=== PATIENT | male | born 1985 | race Caucasian/White ===

== ENCOUNTER 2022-04-12 01:55 | Outpatient (CLI) | payer OTHER, SELFPAY | END 2022-04-12 01:56 | disposition home or self-care (01) | LOC: LBO 01:55 | PROVIDERS: Visit Provider Emergency Medicine ==

== ENCOUNTER 2022-04-15 02:09 | Outpatient (CLI) | payer OTHER, SELFPAY ==
[2022-04-15 10:02] LABS: Abs Immature Grans 0.01 10^3/uL (0.0-0.06); Absolute Basophil Count 0.01 10^3/uL (0.0-0.2); Absolute Eosinophil Count 0.01 10^3/uL (0.0-0.7); Absolute Lymphocyte Count 0.74 10^3/uL (1.2-3.4); Absolute Monocyte Count 0.15 10^3/uL (0.1-0.8); Basophils % 0.4; Eosinophils % 0.4; HCT 31.7 % (40.0-50.0); HGB 10.4 g/dL (13.5-17.5); Immature Grans % 0.4; Lymphocytes % 28.2; MCH 28.7 pg (27.0-33.0); MCHC 32.8 % (32.0-36.0); MCV 88 fL (80-95); MPV 10.6 fL (8.0-11.0); Monocytes % 5.7; Neutrophils % 64.9; RBC 3.62 10^6/uL (4.36-5.78); RDW 14.3 % (11.8-14.1); RDW-SD 45.9 fL; WBC 2.62 10^3/uL (4.4-10.8)
[2022-04-15 10:15] LABS: ALT 30 U/L (16-63); AST 25 U/L (15-37); Albumin 3.6 g/dL (3.4-5.0); Alkaline Phosphatase 66 U/L (46-116); Anion Gap 7.5 mmol/L (3-11); BUN 11 mg/dL (7-18); Bilirubin, Total 0.8 mg/dL (0.2-1.0); CO2 26.5 mmol/L (21.0-32.0); CREATININE 0.8 mg/dL (0.70-1.30); Calcium 8.7 mg/dL (8.5-10.1); Chloride 107 mmol/L (98-107); Glucose 91 mg/dL (74-106); Potassium 3.6 mmol/L (3.5-5.1); Sodium 141 mmol/L (136-145); Total Protein 8.2 g/dL (6.4-8.2)
[2022-04-15 10:16] LABS: Platelet Count 65 10^3/uL (130-400)
[2022-04-18 10:09] LABS: Hepatitis C Ab w Rflx HCV PCR Reactive (Negative)
[2022-04-18 14:58] LABS: HCV RNA Detection Quantitative 187000 IU/mL (Undetected); HCV RNA Qualitative Detected (Undetected)
== END 2022-04-15 02:10 | disposition home or self-care (01) ==
PROVIDERS: Visit Provider Emergency Medicine
DX: Z13.89 Encounter for screening for other disorder (principal); Z11.8 Encounter for screening for other infectious and parasitic diseases
CPT/HCPCS: 36415; 80053; 86803; 87522; 85025

== ENCOUNTER 2022-08-29 04:21 | Outpatient (CLI) | payer OTHER, SELFPAY ==
[2022-08-29 12:43] LABS: Absolute Basophil Count 0.03 10^3/uL (0.0-0.2); Absolute Eosinophil Count 0.05 10^3/uL (0.0-0.7); Absolute Lymphocyte Count 1.19 10^3/uL (1.2-3.4); Absolute Monocyte Count 0.24 10^3/uL (0.1-0.8); Basophils % 0.9; Eosinophils % 1.4; HCT 36.7 % (40.0-50.0); HGB 11.7 g/dL (13.5-17.5); Lymphocytes % 33.9; MCH 28.8 pg (27.0-33.0); MCHC 31.9 % (32.0-36.0); MCV 90 fL (80-95); MPV 10.9 fL (8.0-11.0); Monocytes % 6.8; RBC 4.06 10^6/uL (4.36-5.78); RDW 13.7 % (11.8-14.1); RDW-SD 45.4 fL; WBC 3.51 10^3/uL (4.4-10.8)
[2022-08-29 12:57] LABS: Platelet Count 96 10^3/uL (130-400)
[2022-08-29 13:00] LABS: ALT 12 U/L (16-63); AST 16 U/L (15-37); Albumin 3.8 g/dL (3.4-5.0); Alkaline Phosphatase 72 U/L (46-116); Anion Gap 8.1 mmol/L (3-11); BUN 13 mg/dL (7-18); Bilirubin, Total 0.4 mg/dL (0.2-1.0); CO2 28.9 mmol/L (21.0-32.0); CREATININE 0.8 mg/dL (0.70-1.30); Calcium 9.2 mg/dL (8.5-10.1); Chloride 104 mmol/L (98-107); Estimated GFR 116.17 (mL/min/1.73m2); Glucose 90 mg/dL (74-106); Potassium 4.4 mmol/L (3.5-5.1); Sodium 141 mmol/L (136-145)
[2022-08-30 10:28] LABS: Hepatitis C Ab w Rflx HCV PCR Reactive (Negative)
[2022-08-31 12:41] LABS: HCV RNA Detection Quantitative 21 IU/mL (Undetected); HCV RNA Qualitative Detected (Undetected)
== END 2022-08-29 04:22 | disposition home or self-care (01) ==
LOC: LBO 04:21
PROVIDERS: PCP Family Medicine; Visit Provider Emergency Medicine
DX: B18.2 Chronic viral hepatitis C (principal); F11.20 Opioid dependence, uncomplicated; E66.9 Obesity, unspecified; I87.2 Venous insufficiency (chronic) (peripheral)
CPT/HCPCS: 36415; 80053; 86803; 87522; 85025

== ENCOUNTER 2022-11-17 12:22 | Inpatient (IN) | payer MEDICAID, SELFPAY ==
[2022-11-17] VITALS (12 sets, daily range): BP systolic 118–143; BP diastolic 58–82; PULSE 70–90; RESP 16–20; TEMP 36.8–38.2; O2SAT 94–98
--- NOTE | 2022-11-17 13:00 | DI.CT_ITS ---
Exam(s) CT LOWER EXTREMITY RT W EXAM: CT LOWER EXTREMITY RT W CLINICAL HISTORY: cellulitis, ?abscess, swelling. TECHNIQUE: Imaging Protocol: Axial computed tomography images with coronal and sagittal reformatted images were created and reviewed. CONTRAST MATERIAL: Intravenous: Omnipaque 350. Contrast Volume: 100 ML COMPARISON: No exams were available for comparison FINDINGS: Bones: The osseous structures and articular surfaces are intact. Bony alignment is satisfactory. N o CT findings to suggest osteomyelitis. Degenerative changes are seen in the knee. No lytic or scle rotic lesions are identified. Soft Tissues: There is marked edema and skin thickening throughout the lower extremity. No focal flu id collection is seen to suggest an abscess. There is a skin defect in the anterior leg. This may r epresent an ulceration or laceration. Enhancement: No abnormal enhancement is identified. IMPRESSION: 1. Marked cellulitis in the lower extremity. No evidence of an abscess. 2. Ulceration or laceration involving the anterior lower leg. 3. Findings were discussed with Dr. Gomez at 3:04 p.m. on 11/17/2022. RADIATION DOSE DELIVERED: 567.65mGy.cm Total DLP 567.65mGy.cm Total DLP DATA REPOSITORY: All CT scans at this facility are submitted to the National Radiology Data Registry (NRDR) Dose Index Registry (DIR) with the [employer] (A[employer]). RADIATION OPTIMIZATION: All CT scans at this facility use at least one of these dose optimization te chniques: automated exposure control; mA and/or kV adjustment per patient size (includes targeted exa ms where dose is matched to clinical indication); or iterative reconstruction.
[2022-11-17 13:33] LABS: Abs Immature Grans 0.04 10^3/uL (0.0-0.06); Absolute Basophil Count 0.02 10^3/uL (0.0-0.2); Absolute Eosinophil Count 0.02 10^3/uL (0.0-0.7); Absolute Lymphocyte Count 0.65 10^3/uL (1.2-3.4); Absolute Monocyte Count 0.34 10^3/uL (0.1-0.8); Absolute Neutrophil Count 5.66 10^3/uL (1.2-6.7); Basophils % 0.3; Eosinophils % 0.3; HCT 31.3 % (40.0-50.0); HGB 9.7 g/dL (13.5-17.5); Immature Grans % 0.6; Lymphocytes % 9.7; MCV 91 fL (80-95); MPV 11.2 fL (8.0-11.0); Monocytes % 5.1; Platelet Count 155 10^3/uL (130-400); RBC 3.46 10^6/uL (4.36-5.78); RDW 13.6 % (11.8-14.1); RDW-SD 45.1 fL; WBC 6.73 10^3/uL (4.4-10.8)
[2022-11-17 13:34] LABS: ESR 53 mm/hr (0-15)
[2022-11-17] MEDS: VANCOMYCIN/WATER (PEG) 2 GM/400 ML BAG IV (13:38)
[2022-11-17 13:43] LABS: C-Reactive Protein 18.16 mg/dL (0.0-0.3)
[2022-11-17 13:47] LABS: ALT 24 U/L (16-63); AST 29 U/L (15-37); Albumin 2.6 g/dL (3.4-5.0); Alkaline Phosphatase 76 U/L (46-116); Anion Gap 4.5 mmol/L (3-11); BUN 10 mg/dL (7-18); Bilirubin, Total 0.6 mg/dL (0.2-1.0); CO2 31.5 mmol/L (21.0-32.0); CREATININE 0.9 mg/dL (0.70-1.30); Calcium 8.6 mg/dL (8.5-10.1); Chloride 104 mmol/L (98-107); Estimated GFR 112.11 (mL/min/1.73m2); Glucose 96 mg/dL (74-106); Potassium 3.8 mmol/L (3.5-5.1); Sodium 140 mmol/L (136-145); Total Protein 7.9 g/dL (6.4-8.2)
--- NOTE | 2022-11-17 14:21 | W.SURGCON ---
Date of service: 11/17/22 Time of Service: 14:21 Assessment and Plan Assessment and plan (1) Left leg cellulitis: Status: Acute Assessment and plan: This seems most consistent with a severe cellulitis mostly of the left lower extremity, compounding chronic wounds and what appears to be venous stasis or perhaps chronic lymphedema. I would start with broad-spectrum antibiotics covering typical skin fortino. To keep both legs elevated while in bed. I would continue Medihoney on the open wound, covered by Xeroform gauze, and compressive dressings from the toes to the knees. History of Present Illness History of Present Illness Chief Complaint: Right leg wounds Narrative: Chadd is a 37-year-old male with bilateral lower extremity edema. He has chronic wounds on both lower extremities. He notes that the left leg has become increasingly swollen, red, and painful over the past 4 to 5 days. Today, there was spontaneous drainage of bland smelling serosanguineous discharge from the posterior aspect of the left calf. Review of Systems Constitutional Constitutional: Denies body ache(s), Denies fatigue, Denies fever(s) and Denies night sweats Eyes Eyes: Reports system reviewed and no additional complaints, except as documented ENT Ears, Nose, Mouth, and Throat: Reports system reviewed and no additional complaints, except as documented and Denies abnormal hearing Cardiovascular Cardiovascular: Reports leg ulcers and Reports leg edema Respiratory Respiratory: Denies chest congestion and Denies cough Gastrointestinal Gastrointestinal: Denies abdominal pain, Denies diarrhea, Denies nausea and Denies vomiting Genitourinary Genitourinary: Reports system reviewed and no additional complaints, except as documented Musculoskeletal Musculoskeletal: Denies arthralgias, Denies joint swelling, Reports muscle cramps and Denies tingling Neurologic Neurologic: Denies abnormal hearing, Denies abnormal speech and Denies tingling Psychiatric Psychiatric: Reports system reviewed and no additional complaints, except as documented Endocrine Endocrine: Denies fatigue, Denies flushing and Denies polyuria Hematologic/Lymphatic Hematologic/Lymphatic: Denies easy bleeding and Denies easy bruising PFSH All Active Problems (Updated 11/17/22 @ 14:57 by Reggie Maldonado MD) Left leg cellulitis (Acute) Social History Smoking risk assessment performed?: No Exam Const General: cooperative Nutritional Appearance: obese Orientation: alert, awake and oriented x3 HENMT Head: normal to inspection Eyes General: appearance normal, both eyes and all related structures Neck Neck: normal visual inspection, full ROM, supple and nontender Chest Chest: normal inspection of the chest Resp Auscultation: clear to auscultation bilaterally Cardio Jugular venous pressure: no JVD Rate: regular rate Rhythm: regular rhythm Skin Wounds: wounds noted (Multiple superficial chronic skin wounds on both legs) There is a large surgically debrided wound on the anterior lateral aspect of the left lower leg. It is clean. Mildly tender diffuse erythema along the entire left lower extremity from the alvarez to the ankle there is serosanguineous discharge from punctate wounds on the backside of the left Extrem Right lower extremity: edema and lower leg Left lower extremity: edema and lower leg Other: He has palpable pulses in the left dorsalis pedis and posterior tibial distributions Results Last Vital Signs Temp 98.2 F 11/17/22 12:25 Pulse 90 11/17/22 12:25 Resp 20 11/17/22 12:25 BP 142/77 H 11/17/22 12:25 Pulse Ox 98 11/17/22 12:25 Labs 11/17/22 13:20 11/17/22 13:20 Labs: Laboratory Results - last 24 hr 11/17/22 11/17/22 11/17/22 13:20 13:20 13:20 WBC 6.73 RBC 3.46 L Hgb 9.7 L Hct 31.3 L MCV 91 MCH 28.0 MCHC 31.0 L RDW 13.6 Plt Count 155 MPV 11.2 H Immature Gran % 0.6 Neutrophils % 84.0 Lymphocytes % 9.7 Monocytes % 5.1 Eosinophils % 0.3 Basophils % 0.3 Nucleated RBC % 0.0 Absolute Neutrophils 5.66 Absolute Lymphocytes 0.65 L Absolute Monocytes 0.34 Absolute Eosinophils 0.02 Absolute Basophils 0.02 ESR Sodium 140 Potassium 3.8 Chloride 104 Carbon Dioxide 31.5 Anion Gap 4.5 BUN 10 Creatinine 0.9 Est GFR (CKD-EPI 2020) 112.11 Glucose 96 Calcium 8.6 Total Bilirubin 0.6 AST 29 ALT 24 Alkaline Phosphatase 76 C-Reactive Protein 18.16 H Total Protein 7.9 Albumin 2.6 L 11/17/22 13:20 WBC RBC Hgb Hct MCV MCH MCHC RDW Plt Count MPV Immature Gran % Neutrophils % Lymphocytes % Monocytes % Eosinophils % Basophils % Nucleated RBC % Absolute Neutrophils Absolute Lymphocytes Absolute Monocytes Absolute Eosinophils Absolute Basophils ESR 53 H Sodium Potassium Chloride Carbon Dioxide Anion Gap BUN Creatinine Est GFR (CKD-EPI 2020) Glucose Calcium Total Bilirubin AST ALT Alkaline Phosphatase C-Reactive Protein Total Protein Albumin
[2022-11-17] MEDS: Omnipaque 350 MG/ML 500 ML BTL-Imaging package IJ (14:59)
[2022-11-17] MEDS: Normal Saline - Diluent 50 ML VIAL IJ (15:00)
--- NOTE | 2022-11-17 15:29 | W.ED.GENAD ---
Discharge Plan Disposition Patient Disposition: Admit to [facility] Discharge Details Chief Complaint: Cellulitis Clinical Impression: Left leg cellulitis, Lymphedema Primary Care Provider: Flavio Majano ED Provider: Maksim Gomez Home Meds and New Rx's Prescriptions: No Action acetaminophen 325 mg Tablet 650 mg PO TID clindamycin HCl 300 mg Capsule 300 mg PO TID meloxicam 7.5 mg tablet 7.5 mg PO DAILY buprenorphine HCl [Subutex] 2 mg Tablet, Sublingual 4 mg SUBLINGUAL DAILY buprenorphine HCl [Subutex] 8 mg Tablet, Sublingual 8 mg SUBLINGUAL DAILY Medical Decision Making 37-year-old male with chronic lymphedema bilateral lower extremities, here with acute cellulitis left lower extremity over the past 5 days refractory to clindamycin, draining heavily. Concern for deep space abscess. Plan to initiate treatment for MRSA with vancomycin IV. I called and spoke with on-call general surgeon, Dr. Maldonado, discussed ED presentation and course, he evaluated the patient and did not feel there was any emergent surgical treatment indicated. CT of the left lower leg was interpreted by radiology: No abscess or osteomyelitis. I reviewed the patient's labs. Anemia of unknown etiology noted. I called and spoke with Dr. Mc, on-call hospitalist, discussed ED presentation course, he will admit the patient for continued IV antibiotics. Care transitioned at time of admission. Lab Data Lab results reviewed: Yes I reviewed the patient's lab results. Labs: 11/17/22 15:04 Nose MRSA Screen - Pending Laboratory Tests Range/Units 11/17/22 11/17/22 11/17/22 13:20 13:20 13:20 WBC (4.4-10.8) 10^3/uL 6.73 RBC (4.36-5.78) 10^6/uL 3.46 L Hgb (13.5-17.5) g/dL 9.7 L Hct (40.0-50.0) % 31.3 L MCV (80-95) fL 91 MCH (27.0-33.0) pg 28.0 MCHC (32.0-36.0) % 31.0 L RDW (11.8-14.1) % 13.6 Plt Count (130-400) 10^3/uL 155 MPV (8.0-11.0) fL 11.2 H Immature Gran % 0.6 Neutrophils % 84.0 Lymphocytes % 9.7 Monocytes % 5.1 Eosinophils % 0.3 Basophils % 0.3 Nucleated RBC % (0.0-0.3) % 0.0 Absolute Neutrophils (1.2-6.7) 10^3/uL 5.66 Absolute Lymphocytes (1.2-3.4) 10^3/uL 0.65 L Absolute Monocytes (0.1-0.8) 10^3/uL 0.34 Absolute Eosinophils (0.0-0.7) 10^3/uL 0.02 Absolute Basophils (0.0-0.2) 10^3/uL 0.02 ESR (0-15) mm/hr Sodium (136-145) mmol/L 140 Potassium (3.5-5.1) mmol/L 3.8 Chloride (98-107) mmol/L 104 Carbon Dioxide (21.0-32.0) mmol/L 31.5 Anion Gap (3-11) mmol/L 4.5 BUN (7-18) mg/dL 10 Creatinine (0.70-1.30) mg/dL 0.9 Est GFR (CKD-EPI 2020) (mL/min/1.73m2) 112.11 Glucose (74-106) mg/dL 96 Calcium (8.5-10.1) mg/dL 8.6 Total Bilirubin (0.2-1.0) mg/dL 0.6 AST (15-37) U/L 29 ALT (16-63) U/L 24 Alkaline Phosphatase (46-116) U/L 76 C-Reactive Protein (0.0-0.3) mg/dL 18.16 H Total Protein (6.4-8.2) g/dL 7.9 Albumin (3.4-5.0) g/dL 2.6 L Range/Units 11/17/22 13:20 WBC (4.4-10.8) 10^3/uL RBC (4.36-5.78) 10^6/uL Hgb (13.5-17.5) g/dL Hct (40.0-50.0) % MCV (80-95) fL MCH (27.0-33.0) pg MCHC (32.0-36.0) % RDW (11.8-14.1) % Plt Count (130-400) 10^3/uL MPV (8.0-11.0) fL Immature Gran % Neutrophils % Lymphocytes % Monocytes % Eosinophils % Basophils % Nucleated RBC % (0.0-0.3) % Absolute Neutrophils (1.2-6.7) 10^3/uL Absolute Lymphocytes (1.2-3.4) 10^3/uL Absolute Monocytes (0.1-0.8) 10^3/uL Absolute Eosinophils (0.0-0.7) 10^3/uL Absolute Basophils (0.0-0.2) 10^3/uL ESR (0-15) mm/hr 53 H Sodium (136-145) mmol/L Potassium (3.5-5.1) mmol/L Chloride (98-107) mmol/L Carbon Dioxide (21.0-32.0) mmol/L Anion Gap (3-11) mmol/L BUN (7-18) mg/dL Creatinine (0.70-1.30) mg/dL Est GFR (CKD-EPI 2020) (mL/min/1.73m2) Glucose (74-106) mg/dL Calcium (8.5-10.1) mg/dL Total Bilirubin (0.2-1.0) mg/dL AST (15-37) U/L ALT (16-63) U/L Alkaline Phosphatase (46-116) U/L C-Reactive Protein (0.0-0.3) mg/dL Total Protein (6.4-8.2) g/dL Albumin (3.4-5.0) g/dL HPI General Date/Time Provider Initiated Documentation: 11/17/22 12:50. Limitations to Documentation: no limitations. Information obtained by: patient. HPI Narrative: 37-year-old male with history of chronic lymphedema bilateral lower extremities, here with concern for infection left lower extremity. Patient notes over the past 5 days he has had increased swelling, redness, and drainage from posterior left lower leg. He was started on clindamycin which she has been taking over the past 5 days without improvement. Drainage is significant. He has no associated fever. Related Data Home Medications Medication Instructions Recorded Confirmed acetaminophen 325 mg tablet 650 mg PO TID 11/17/22 11/17/22 buprenorphine HCl 2 mg sublingual 4 mg sublingual DAILY 11/17/22 11/17/22 tablet buprenorphine HCl 8 mg sublingual 8 mg sublingual DAILY 11/17/22 11/17/22 tablet clindamycin HCl 300 mg capsule 300 mg PO TID 11/17/22 11/17/22 meloxicam 7.5 mg tablet 7.5 mg PO DAILY 11/17/22 11/17/22 Allergies Allergy/AdvReac Type Severity Reaction Status Date / Time No Known Allergies Allergy Unverified 11/17/22 12:42 General Stated Complaint: Cellulitis MARCELLE: 3 Review of Systems All systems reviewed & are unremarkable except as noted in HPI and below Constitutional Constitutional: Denies fever(s) Integumentary/Breasts Skin/Breast: Reports as per HPI PFSH All Active Problems (Updated 11/17/22 @ 15:38 by Maksim Gomez MD) Lymphedema (Acute) Left leg cellulitis (Acute) Social History Smoking risk assessment performed?: No Exam Const General: cooperative and no acute distress HENMT Head: atraumatic Mouth: moist mucous membranes Cardio Rate: regular rate and not tachycardic Rhythm: regular rhythm Skin Rashes: rashes noted (Increased redness posterior right lower leg) Extrem Right lower extremity: lower leg Details: erythema, tenderness and other (Edematous, yellow drainage from wounds posterior lower leg, large deep ulceration anterior) Course Vital Signs Vital signs: Vital Signs Temperature 36.8 C 11/17/22 12:25 Pulse 90 11/17/22 12:25 Respiratory Rate 20 11/17/22 12:25 Blood Pressure 142/77 H 11/17/22 12:25 Pulse Oximetry 98 11/17/22 12:25 Temperature 36.8 C 11/17/22 12:25 Temperature Source Oral 11/17/22 12:25 Pulse 90 11/17/22 12:25 Respiratory Rate 20 11/17/22 12:25 Respiratory Effort Normal 11/17/22 14:20 Blood Pressure 142/77 H 11/17/22 12:25 Blood Pressure Position Sitting 11/17/22 12:25 Pulse Oximetry 98 11/17/22 12:25 Oxygen Delivery Method Room Air 11/17/22 12:25 Oxygen Flow Rate 0 11/17/22 12:25 Lab/Test Results Lab/Test Results: 11/17/22 15:04 Nose MRSA Screen - Pending Laboratory Tests Range/Units 11/17/22 11/17/22 11/17/22 13:20 13:20 13:20 WBC (4.4-10.8) 10^3/uL 6.73 RBC (4.36-5.78) 10^6/uL 3.46 L Hgb (13.5-17.5) g/dL 9.7 L Hct (40.0-50.0) % 31.3 L MCV (80-95) fL 91 MCH (27.0-33.0) pg 28.0 MCHC (32.0-36.0) % 31.0 L RDW (11.8-14.1) % 13.6 Plt Count (130-400) 10^3/uL 155 MPV (8.0-11.0) fL 11.2 H Immature Gran % 0.6 Neutrophils % 84.0 Lymphocytes % 9.7 Monocytes % 5.1 Eosinophils % 0.3 Basophils % 0.3 Nucleated RBC % (0.0-0.3) % 0.0 Absolute Neutrophils (1.2-6.7) 10^3/uL 5.66 Absolute Lymphocytes (1.2-3.4) 10^3/uL 0.65 L Absolute Monocytes (0.1-0.8) 10^3/uL 0.34 Absolute Eosinophils (0.0-0.7) 10^3/uL 0.02 Absolute Basophils (0.0-0.2) 10^3/uL 0.02 ESR (0-15) mm/hr Sodium (136-145) mmol/L 140 Potassium (3.5-5.1) mmol/L 3.8 Chloride (98-107) mmol/L 104 Carbon Dioxide (21.0-32.0) mmol/L 31.5 Anion Gap (3-11) mmol/L 4.5 BUN (7-18) mg/dL 10 Creatinine (0.70-1.30) mg/dL 0.9 Est GFR (CKD-EPI 2020) (mL/min/1.73m2) 112.11 Glucose (74-106) mg/dL 96 Calcium (8.5-10.1) mg/dL 8.6 Total Bilirubin (0.2-1.0) mg/dL 0.6 AST (15-37) U/L 29 ALT (16-63) U/L 24 Alkaline Phosphatase (46-116) U/L 76 C-Reactive Protein (0.0-0.3) mg/dL 18.16 H Total Protein (6.4-8.2) g/dL 7.9 Albumin (3.4-5.0) g/dL 2.6 L Range/Units 11/17/22 13:20 WBC (4.4-10.8) 10^3/uL RBC (4.36-5.78) 10^6/uL Hgb (13.5-17.5) g/dL Hct (40.0-50.0) % MCV (80-95) fL MCH (27.0-33.0) pg MCHC (32.0-36.0) % RDW (11.8-14.1) % Plt Count (130-400) 10^3/uL MPV (8.0-11.0) fL Immature Gran % Neutrophils % Lymphocytes % Monocytes % Eosinophils % Basophils % Nucleated RBC % (0.0-0.3) % Absolute Neutrophils (1.2-6.7) 10^3/uL Absolute Lymphocytes (1.2-3.4) 10^3/uL Absolute Monocytes (0.1-0.8) 10^3/uL Absolute Eosinophils (0.0-0.7) 10^3/uL Absolute Basophils (0.0-0.2) 10^3/uL ESR (0-15) mm/hr 53 H Sodium (136-145) mmol/L Potassium (3.5-5.1) mmol/L Chloride (98-107) mmol/L Carbon Dioxide (21.0-32.0) mmol/L Anion Gap (3-11) mmol/L BUN (7-18) mg/dL Creatinine (0.70-1.30) mg/dL Est GFR (CKD-EPI 2020) (mL/min/1.73m2) Glucose (74-106) mg/dL Calcium (8.5-10.1) mg/dL Total Bilirubin (0.2-1.0) mg/dL AST (15-37) U/L ALT (16-63) U/L Alkaline Phosphatase (46-116) U/L C-Reactive Protein (0.0-0.3) mg/dL Total Protein (6.4-8.2) g/dL Albumin (3.4-5.0) g/dL
[2022-11-17 15:37] LABS: Source Nasal/Nares
[2022-11-17 15:54] LABS: Lab Add On Test DONE
[2022-11-17 16:08] LABS: COVID-19 PCR Negative (Negative)
[2022-11-17 16:11] LABS: Iron 12 ug/dL (65-175); Total Iron Binding Capacity 191 ug/dL (250-450); Transferrin Sat 6 % (20-55)
--- NOTE | 2022-11-17 17:20 | HPE_ITS ---
Date of service: 11/17/22 Time of Service: 17:20 Assessment and Plan Assessment and plan (1) Lymphedema: Status: Acute Assessment and plan: Chronic with wounds as described below. He is incarcerated so logistics of lymphedema care could be problematic but recommend evaluation from lymphedema specialist. (2) Left leg cellulitis: Status: Acute Assessment and plan: Initiated vancomycin in the ED. MRSA screen pending. Add Zosyn; possible pseudomonas? (3) Venous stasis ulcer: Status: Acute Assessment and plan: Wound care recommendations per gen. surgery. Lymphedema with venous stasis as the etiology of his multiple shallow ulcers and the larger, previously debrided ulcer on the LLE. History of Present Illness History of Present Illness Chief Complaint: Cellulitis Narrative: This is a 37 yo male with a PMH of lymphedema, substance abuse, venous stasis leg ulcerations. He is currently incarcerated. He presented to the ED for ongoing increased redness, swelling and drainage from the posterior left LE. He was prescribed clindamycin 5 days prior to presentation but had not noted any improvement. No current fever but stated that 2-3 days ago he did have a temp of 103F. No N/V/diarrhea. In the ED VSS. WBC count normal. CRP elevated at 18.16. ESR elevated at 53. CT of the LLE showed no abscess or osteomyelitis. Gen Surg, Dr Maldonado evaluated and gave wound care recommendations. Vancomycin administered in the ED. Review of Systems All systems reviewed & are unremarkable except as noted in HPI and below PFSH All Active Problems (Updated 11/18/22 @ 07:59 by Josep Mc MD) Venous stasis ulcer (Acute) Lymphedema (Acute) Left leg cellulitis (Acute) Social History Smoking/Tobacco Use Status: Former Tobacco Use Smoking risk assessment performed?: Yes Meds Allergies and Home Medications Allergies Allergy/AdvReac Type Severity Reaction Status Date / Time No Known Allergies Allergy Unverified 11/17/22 12:42 Home Medications Medication Instructions Recorded Confirmed Type acetaminophen 325 mg tablet 650 mg PO TID 11/17/22 11/17/22 History buprenorphine HCl 2 mg sublingual 4 mg sublingual DAILY 11/17/22 11/17/22 History tablet buprenorphine HCl 8 mg sublingual 8 mg sublingual DAILY 11/17/22 11/17/22 History tablet clindamycin HCl 300 mg capsule 300 mg PO TID 11/17/22 11/17/22 History meloxicam 7.5 mg tablet 7.5 mg PO DAILY 11/17/22 11/17/22 History Exam Narrative Exam Narrative: Obese male lying supine. Pleasant, conversant and gives good history. Const General: cooperative and no acute distress Nutritional Appearance: obese Orientation: alert and oriented x3 Neck Neck: full ROM Resp Effort & Inspection: normal respiratory effort and able to speak in complete sentences Auscultation: clear to auscultation bilaterally Cardio Rate: regular rate Rhythm: regular rhythm Heart Sounds: S1 normal and S2 normal GI Inspection: non-distended and obesity Palpation: soft and nontender Skin Lesions: other (Multiple superficial skin wounds of BLE's below the knee s/chronic appearing) Full body images: 1. Large wound that has been surgically debrided; contains slough. 2. Diffuse erythema (anterior and posterior) with serosanguineous drainage from scattered punctate wounds posteriorly. Extrem General: edema Laterality: bilateral Psych Mental Status: mental status grossly normal Speech and Movement: speech and movement normal Affect: normal affect Results Labs 11/17/22 13:20 11/17/22 13:20 Labs: Laboratory Results - last 24 hr 11/17/22 11/17/22 11/17/22 13:20 13:20 13:20 WBC 6.73 RBC 3.46 L Hgb 9.7 L Hct 31.3 L MCV 91 MCH 28.0 MCHC 31.0 L RDW 13.6 Plt Count 155 MPV 11.2 H Immature Gran % 0.6 Neutrophils % 84.0 Lymphocytes % 9.7 Monocytes % 5.1 Eosinophils % 0.3 Basophils % 0.3 Nucleated RBC % 0.0 Absolute Neutrophils 5.66 Absolute Lymphocytes 0.65 L Absolute Monocytes 0.34 Absolute Eosinophils 0.02 Absolute Basophils 0.02 ESR Sodium 140 Potassium 3.8 Chloride 104 Carbon Dioxide 31.5 Anion Gap 4.5 BUN 10 Creatinine 0.9 Est GFR (CKD-EPI 2020) 112.11 Glucose 96 Calcium 8.6 Iron TIBC Transferrin % Sat Total Bilirubin 0.6 AST 29 ALT 24 Alkaline Phosphatase 76 C-Reactive Protein 18.16 H Total Protein 7.9 Albumin 2.6 L COVID-19 Source SARS-CoV-2 (PCR) Add-On Test Request 11/17/22 11/17/22 11/17/22 13:20 13:20 15:33 WBC RBC Hgb Hct MCV MCH MCHC RDW Plt Count MPV Immature Gran % Neutrophils % Lymphocytes % Monocytes % Eosinophils % Basophils % Nucleated RBC % Absolute Neutrophils Absolute Lymphocytes Absolute Monocytes Absolute Eosinophils Absolute Basophils ESR 53 H Sodium Potassium Chloride Carbon Dioxide Anion Gap BUN Creatinine Est GFR (CKD-EPI 2020) Glucose Calcium Iron 12 L TIBC 191 L Transferrin % Sat 6 L Total Bilirubin AST ALT Alkaline Phosphatase C-Reactive Protein Total Protein Albumin COVID-19 Source Nasal/Nares SARS-CoV-2 (PCR) Negative Add-On Test Request 11/17/22 Unknown WBC RBC Hgb Hct MCV MCH MCHC RDW Plt Count MPV Immature Gran % Neutrophils % Lymphocytes % Monocytes % Eosinophils % Basophils % Nucleated RBC % Absolute Neutrophils Absolute Lymphocytes Absolute Monocytes Absolute Eosinophils Absolute Basophils ESR Sodium Potassium Chloride Carbon Dioxide Anion Gap BUN Creatinine Est GFR (CKD-EPI 2020) Glucose Calcium Iron TIBC Transferrin % Sat Total Bilirubin AST ALT Alkaline Phosphatase C-Reactive Protein Total Protein Albumin COVID-19 Source SARS-CoV-2 (PCR) Add-On Test Request DONE Last Vital Signs Temp 37.8 C H 11/17/22 16:05 Pulse 79 11/17/22 16:05 Resp 18 11/17/22 16:05 BP 143/82 H 11/17/22 16:05 Pulse Ox 98 11/17/22 16:05 Time Spent Time spent with Patient: <40 minutes Time was spent: preparing to see the patient(eg.review tests), ordering me dications,tests, procedures, indepentently interpreting results and counseling the patient
[2022-11-17 17:52] LABS: Lab Add On Test DONE
[2022-11-17 18:01] LABS: Magnesium 1.9 mg/dL (1.8-2.4)
--- NOTE | 2022-11-17 21:22 | NUR.NOTE ---
Pt came up to floor with IV Vancomycin infusing to ARANZA. Pt c/o arm feeling funny. This nurse looked at pt arm and didn't observe any redness. Pt is fairly large and arms are large as well. No warmth felt at site. IV infusion stopped, IV flushed w/no blood return noted. IV was taken out by this nurse. Pt voiced no other complaints about arm. Pt was given ice pack for arm and asked to report any burning or stinging to arm. Charge nurse made aware.
[2022-11-17] MEDS: Heparin 5,000 UNITS/ML VIAL 5000 UNITS SC (22:51)
[2022-11-17] MEDS: VANCOMYCIN/WATER (PEG) 1.5 GM/300 ML BAG IVPB (22:52)
[2022-11-18] MEDS: Heparin 5,000 UNITS/ML VIAL 5000 UNITS SC ×3 (05:57→21:39)
[2022-11-18] MEDS: VANCOMYCIN/WATER (PEG) 1.5 GM/300 ML BAG IVPB ×2 (05:57→16:04)
[2022-11-18 07:00] LABS: ESR 77 mm/hr (0-15)
[2022-11-18 07:23] LABS: C-Reactive Protein 13.07 mg/dL (0.0-0.3)
[2022-11-18 07:29] VITALS: BP 126/63; PULSE 72; RESP 17; TEMP 37.5; O2SAT 95
[2022-11-18] MEDS: Buprenorphine 2 MG SUBLINGUAL TABLET 4 MG SL (08:38)
[2022-11-18] MEDS: MELOXICAM 7.5 MG TAB PO (08:38)
--- NOTE | 2022-11-18 10:57 | INITIAL_ITS ---
- If Service Date Differs Date of service: 11/18/22 Time of Service: 10:57 Care Management Initial Assess REASON FOR HOSPITALIZATION:: Cellulitis PAST MEDICAL HISTORY/PAST SURGICAL HISTORY:: Venous stasis ulcer (Acute). Lymphedema (Acute). Left leg cellulitis (Acute). PMH of lymphedema, substance use, venous stasis leg ulcerations. He is currently incarcerated. He presented to the ED for ongoing increased redness, swelling and drainage from the post erior left LE. He was prescribed clindamycin 5 days prior to presentation but had not noted any improvement. PREVIOUS FUNCTIONAL STATUS/SOCIAL/FAMILY SUPPORTS:: Incarcerated at [facility]. CURRENT FUNCTIONAL STATUS:: Ed is lying in bed, guards at bedside. ADVANCE DIRECTIVES:: None on file. Has patient been provided with info about the portal/API?: No Did the patient sign up for the portal?: No CODE STATUS:: Full Code INSURANCE COVERAGE / FINANCIAL ISSUES:: Medicaid. [facility] CURRENT HOME/COMMUNITY SERVICES/EQUIPMENT:: Incarcerated at [facility]; the facility manages service and care needs. PRIMARY CARE PHYSICIAN:: Flavio Majano POTENTIAL DISCHARGE NEEDS:: Coordinated return to [facility]. PATIENT/FAMILY EDUCATION NEEDS:: Review discharge instructions, discuss Ask Me Three. ANTICIPATED BARRIERS TO DISCHARGE:: None identified. TRANSPORTATION:: Via facility's secure transport. PLAN:: Chadd continues work up for infection; awaiting culture results and sen sitivities for determination of antibiotic course, frequency and duration. Nina San: [facility] reports she is available seven days a week to support discharge planning at P#[phone]. She reported if Ed requires IV ABX, corrections can support this with at least 24 hours notice (pharmacy out of state) and PICC line placement. [facility] continues to follow.
--- NOTE | 2022-11-18 14:01 | CHAPLAIN ---
Chadd was in bed when I visited. He is currently incarcerated, so he had two corrections officers with him. I explained my role to Chadd and offered support.
[2022-11-18] MEDS: PIPERACILLIN/TAZO 4.5 GM in Normal Saline 100 ML IVPB ×2 (14:39→19:17)
[2022-11-18] MEDS: Normal Saline 500 ML 30 ML IV (14:41)
[2022-11-18] MEDS: Normal Saline Flush 10 ML SYR IVP ×2 (14:42→16:05)
[2022-11-18 15:08] VITALS: BP 137/65; PULSE 77; RESP 17; TEMP 37.3; O2SAT 95
[2022-11-18] MEDS: Linezolid 600 MG TAB PO (15:13)
--- NOTE | 2022-11-18 16:38 | PGE_ITS ---
Date of Service Date of service: 11/18/22 Time of Service: 16:38 Assessment and Plan Assessment and plan (1) Lymphedema: Status: Acute Assessment and plan: Chronic with wounds as described below. He is incarcerated so logistics of lymphedema care could be problematic but brooks mmend evaluation from lymphedema specialist. (2) Left leg cellulitis: Status: Acute Assessment and plan: Initiated vancomycin in the ED. Dose delay today after losing IV access before a midline could be placed. Now has midline. Zosyn initiated. MRSA screen negative. He did receive a dose of vancomyin prior to the nasal swab for MRSA screening. HIs cellulitis did improve clinically after vancomycin initiated so a gram + organism, MSSA or strep, likely causative agent. May reconsider continuing zosyn. Consider d/c on doxycycline. (3) Venous stasis ulcer: Status: Acute Assessment and plan: Wound care recommendations per gen. surgery. Lymphedema with venous stasis as the etiology of his multiple shallow ulcers and the larger, previously debrided ulcer on the LLE. Subjective Subjective Patient reports: no new complaints, feels better and afebrile; denies nausea or vomiting Interval history since last seen: He notes decreased redness of LLE. Exam Narrative Exam Narrative: Obese male lying supine. Pleasant, conversant and gives good history. Const General: cooperative and no acute distress Nutritional Appearance: obese Orientation: alert and oriented x3 Neck Neck: full ROM Resp Effort & Inspection: normal respiratory effort and able to speak in complete sentences Auscultation: clear to auscultation bilaterally Cardio Rate: regular rate Rhythm: regular rhythm Heart Sounds: S1 normal and S2 normal GI Inspection: non-distended and obesity Palpation: soft and nontender Skin Lesions: other (Multiple superficial skin wounds of BLE's below the knees/chronic appearing) Wounds: wounds noted (Left lateral LE below the knee; bandage in place. ) Full body images: 1. Decreased erthema; now more dusky and chronic appearing. Ongoing serosanguineous drainage from scattered punctate lesions diffusely. Extrem General: edema Laterality: bilateral Psych Mental Status: mental status grossly normal Speech and Movement: speech and movement normal Affect: normal affect Objective Last Vital Signs Temp 37.3 C 11/18/22 15:08 Pulse 77 11/18/22 15:08 Resp 17 11/18/22 15:08 BP 137/65 11/18/22 15:08 Pulse Ox 95 11/18/22 15:08 Laboratory Results - last 24 hr 11/17/22 11/17/22 11/18/22 13:20 Unknown 06:35 ESR Magnesium 1.9 C-Reactive Protein 13.07 H Add-On Test Request DONE 11/18/22 06:35 ESR 77 H Magnesium C-Reactive Protein Add-On Test Request Time Spent with Patient Time Spent with Patient: 25-34 minutes Time was spent: preparing to see the patient(eg.review tests), ordering medications,tests, procedures and indepentently interpreting results
--- NOTE | 2022-11-18 20:20 | NUR.NOTE ---
After each infusion of antibiotics, this nurse verifies placement of ELSA midline. Each time, good blood return is noted. Pt voices no c/o burning, stinging, pressure at site. No s/s of infiltration noted at site.
[2022-11-18 23:10] VITALS: BP 143/76; PULSE 70; RESP 17; TEMP 37.8; O2SAT 95
[2022-11-19] MEDS: Normal Saline Flush 10 ML SYR IVP (00:11)
[2022-11-19] MEDS: VANCOMYCIN/WATER (PEG) 1.5 GM/300 ML BAG IVPB ×3 (00:11→16:10)
[2022-11-19] MEDS: PIPERACILLIN/TAZO 4.5 GM in Normal Saline 100 ML IVPB ×2 (01:44→08:37)
[2022-11-19] MEDS: Heparin 5,000 UNITS/ML VIAL 5000 UNITS SC ×3 (05:19→21:16)
[2022-11-19 07:08] LABS: HCT 28.7 % (40.0-50.0); MCH 28.7 pg (27.0-33.0); MCHC 31.4 % (32.0-36.0); MCV 91 fL (80-95); MPV 11.1 fL (8.0-11.0); Platelet Count 148 10^3/uL (130-400); RBC 3.14 10^6/uL (4.36-5.78); RDW 13.9 % (11.8-14.1); RDW-SD 47.2 fL; WBC 3.67 10^3/uL (4.4-10.8)
[2022-11-19 07:10] LABS: ESR 74 mm/hr (0-15)
[2022-11-19 07:23] LABS: C-Reactive Protein 10.46 mg/dL (0.0-0.3)
[2022-11-19 07:54] VITALS: BP 108/60; PULSE 64; RESP 17; TEMP 36.9; O2SAT 95
[2022-11-19] MEDS: Buprenorphine 2 MG SUBLINGUAL TABLET 4 MG SL (08:38)
[2022-11-19] MEDS: MELOXICAM 7.5 MG TAB PO (08:39)
[2022-11-19 15:11] VITALS: BP 151/69; PULSE 66; RESP 17; TEMP 37.4; O2SAT 99
[2022-11-19 16:03] LABS: Vancomycin, Trough 18.1 ug/mL (10.0-20.0)
--- NOTE | 2022-11-19 18:58 | PGE_ITS ---
Date of Service Date of service: 11/19/22 Time of Service: 17:30 Assessment and Plan Assessment and plan (1) Left leg cellulitis: Status: Acute Assessment and plan: Given excellent response to vancomycin, I think we can simplify the regimen to just vancomycin. Has a midline. MRSA screen negative. I think discharge tomorrow on vancomycin would be reasonable. (2) Lymphedema: Status: Chronic Assessment and plan: Will need follow up with a lymphedema therapist. (3) Venous stasis ulcer: Status: Acute Assessment and plan: Continue compression/wound care per general surgery. (4) Opioid dependence: Status: Chronic Assessment and plan: Continue suboxone (5) DVT prophylaxis: Status: Acute Assessment and plan: SC enoxaparin (6) Discharge planning issues: Status: Acute Assessment and plan: Anticipate discharge tomorrow w/ IV vancomycin. Subjective Subjective Interval history since last seen: Mr Crenshaw states he is doing much better. There was still some drainage that he saw - he described it as red - when the dressing was changed. He denies dizziness, chest pain, shortness of breath, nausea. Exam Narrative Exam Narrative: General: Pleasant obese male who is A&Ox3, sitting up in a chair, comfortable HEENT: EOMI, MMM Heart: RRR, no m/r/g Lungs: CTAB Abdomen: soft, nontender, nondistended Extremities: BLE lymphedema, BLEs are wrapped, chronic venous stasis changes in BLEs, I did not undo the dressings. Objective Last Vital Signs Temp 37.4 C 11/19/22 15:11 Pulse 66 11/19/22 15:11 Resp 17 11/19/22 15:11 BP 151/69 H 11/19/22 15:11 Pulse Ox 99 11/19/22 15:11 Laboratory Results - last 24 hr 11/19/22 11/19/22 11/19/22 06:50 06:50 06:50 WBC 3.67 L RBC 3.14 L Hgb 9.0 L Hct 28.7 L MCV 91 MCH 28.7 MCHC 31.4 L RDW 13.9 Plt Count 148 MPV 11.1 H ESR 74 H C-Reactive Protein 10.46 H Vancomycin Trough 11/19/22 15:25 WBC RBC Hgb Hct MCV MCH MCHC RDW Plt Count MPV ESR C-Reactive Protein Vancomycin Trough 18.1 Time Spent with Patient Time Spent with Patient: 35-49 minutes Time was spent: preparing to see the patient(eg.review tests), obtaining and/or reviewing separately otained hiistory, ordering medications,tests, procedures, referring, communicating with other health progressive care unit registered nurse, indepentently interpreting results, counseling the patient and care coordination
[2022-11-19] MEDS: Acetaminophen 325 MG TAB PO (21:16)
[2022-11-19 23:10] VITALS: BP 148/74; PULSE 67; RESP 17; TEMP 37.5; O2SAT 97
[2022-11-20] MEDS: VANCOMYCIN/WATER (PEG) 1.5 GM/300 ML BAG IVPB ×4 (00:10→23:02)
[2022-11-20] MEDS: Normal Saline Flush 10 ML SYR IVP ×2 (05:42→07:45)
[2022-11-20] MEDS: Heparin 5,000 UNITS/ML VIAL 5000 UNITS SC ×3 (05:43→23:01)
[2022-11-20 07:08] LABS: Abs Immature Grans 0.02 10^3/uL (0.0-0.06); Absolute Basophil Count 0.01 10^3/uL (0.0-0.2); Absolute Eosinophil Count 0.04 10^3/uL (0.0-0.7); Absolute Lymphocyte Count 0.79 10^3/uL (1.2-3.4); Absolute Monocyte Count 0.23 10^3/uL (0.1-0.8); Absolute Neutrophil Count 2.08 10^3/uL (1.2-6.7); Basophils % 0.3; Eosinophils % 1.3; HCT 27.5 % (40.0-50.0); HGB 8.8 g/dL (13.5-17.5); Immature Grans % 0.6; Lymphocytes % 24.9; MCH 29.2 pg (27.0-33.0); MCV 91 fL (80-95); MPV 11.2 fL (8.0-11.0); Monocytes % 7.3; Neutrophils % 65.6; Platelet Count 170 10^3/uL (130-400); RBC 3.01 10^6/uL (4.36-5.78); RDW-SD 47.2 fL; WBC 3.17 10^3/uL (4.4-10.8)
[2022-11-20 07:21] LABS: Anion Gap 5.4 mmol/L (3-11); BUN 9 mg/dL (7-18); CO2 26.6 mmol/L (21.0-32.0); CREATININE 0.7 mg/dL (0.70-1.30); Calcium 8.6 mg/dL (8.5-10.1); Chloride 108 mmol/L (98-107); Estimated GFR 120.95 (mL/min/1.73m2); Glucose 95 mg/dL (74-106); Potassium 4.2 mmol/L (3.5-5.1); Sodium 140 mmol/L (136-145)
[2022-11-20 07:22] LABS: C-Reactive Protein 7.39 mg/dL (0.0-0.3); ESR 65 mm/hr (0-15); Magnesium 1.9 mg/dL (1.8-2.4)
[2022-11-20 07:23] VITALS: BP 110/60; PULSE 64; RESP 19; TEMP 35.9; O2SAT 97
[2022-11-20] MEDS: MELOXICAM 7.5 MG TAB PO (07:42)
[2022-11-20] MEDS: Buprenorphine 2 MG SUBLINGUAL TABLET 4 MG SL (07:45)
[2022-11-20 12:05] VITALS: BP 121/69; PULSE 70; RESP 16; TEMP 36.6; O2SAT 98
[2022-11-20] MEDS: Acetaminophen 325 MG TAB PO (12:17)
[2022-11-20 15:29] VITALS: BP 112/62; PULSE 61; RESP 16; TEMP 37; O2SAT 97
--- NOTE | 2022-11-20 18:48 | PGE_ITS ---
Date of Service Date of service: 11/20/22 Time of Service: 10:30 Assessment and Plan Assessment and plan (1) Left leg cellulitis: Status: Acute Assessment and plan: Conitnue vancomycin. Has a midline. MRSA screen negative. Discussed wound care with general surgery - posterior wound is getting packed. Anterior wound: awaiting wound care follow up for clarification of recomme ndations. After this, the patient could be discharged. (2) Lymphedema: Status: Chronic Assessment and plan: Will need follow up with a lymphedema therapist. I did consult PT for this. (3) Venous stasis ulcer: Status: Acute Assessment and plan: Continue compression/wound care per general surgery. (4) Opioid dependence: Status: Chronic Assessment and plan: Continue suboxone (5) DVT prophylaxis: Status: Acute Assessment and plan: SC enoxaparin (6) Discharge planning issues: Status: Acute Assessment and plan: Anticipate discharge tomorrow w/ IV vancomycin. Subjective Subjective Interval history since last seen: The patient describes pain in his leg, especially with dressing changes. NO dizziness, CP, SOB, nausea. Evaluated by general surgery today who recommended packing the posterior calf wound and tight compression as the wound was bleeding. Exam Narrative Exam Narrative: General: Pleasant obese male who is A&Ox3, laying in bed HEENT: EOMI, MMM Heart: RRR, no m/r/g Lungs: CTAB Abdomen: soft, nontender, nondistended Extremities: BLE lymphedema, BLEs are wrapped; on undoing the dressing LLE, erythema is mild on top of the hyperpigmentation of chronic venous stasis change. Anterior tibial wound with sloughing secretions; posterior tibial wound draining serosanguenous discharge as well as blood. Objective Last Vital Signs Temp 37.0 C 11/20/22 15:29 Pulse 61 11/20/22 15:29 Resp 16 11/20/22 15:29 BP 112/62 11/20/22 15:29 Pulse Ox 97 11/20/22 15:29 Laboratory Results - last 24 hr 11/20/22 11/20/22 11/20/22 06:50 06:50 06:50 WBC RBC Hgb Hct MCV MCH MCHC RDW Plt Count MPV Immature Gran % Neutrophils % Lymphocytes % Monocytes % Eosinophils % Basophils % Nucleated RBC % Absolute Neutrophils Absolute Lymphocytes Absolute Monocytes Absolute Eosinophils Absolute Basophils ESR 65 H Sodium 140 Potassium 4.2 Chloride 108 H Carbon Dioxide 26.6 Anion Gap 5.4 BUN 9 Creatinine 0.7 Est GFR (CKD-EPI 2020) 120.95 Glucose 95 Calcium 8.6 Magnesium 1.9 C-Reactive Protein 7.39 H 11/20/22 06:50 WBC 3.17 L RBC 3.01 L Hgb 8.8 L Hct 27.5 L MCV 91 MCH 29.2 MCHC 32.0 RDW 14.0 Plt Count 170 MPV 11.2 H Immature Gran % 0.6 Neutrophils % 65.6 Lymphocytes % 24.9 Monocytes % 7.3 Eosinophils % 1.3 Basophils % 0.3 Nucleated RBC % 0.0 Absolute Neutrophils 2.08 Absolute Lymphocytes 0.79 L Absolute Monocytes 0.23 Absolute Eosinophils 0.04 Absolute Basophils 0.01 ESR Sodium Potassium Chloride Carbon Dioxide Anion Gap BUN Creatinine Est GFR (CKD-EPI 2020) Glucose Calcium Magnesium C-Reactive Protein Time Spent with Patient Time Spent with Patient: 35-49 minutes Time was spent: preparing to see the patient(eg.review tests), obtaining and/or reviewing separately otained hiistory, ordering medications,tests, procedures, referring, communicating with other health healthcare science specialist, indepentently interpreting results, counseling the patient and care coordination
[2022-11-20 23:20] VITALS: BP 129/68; PULSE 60; RESP 14; TEMP 37.2; O2SAT 96
[2022-11-21] MEDS: Heparin 5,000 UNITS/ML VIAL 5000 UNITS SC ×3 (05:07→23:15)
[2022-11-21 07:23] LABS: Abs Immature Grans 0.03 10^3/uL (0.0-0.06); Absolute Basophil Count 0.02 10^3/uL (0.0-0.2); Absolute Eosinophil Count 0.05 10^3/uL (0.0-0.7); Absolute Lymphocyte Count 0.89 10^3/uL (1.2-3.4); Absolute Monocyte Count 0.21 10^3/uL (0.1-0.8); Absolute Neutrophil Count 1.98 10^3/uL (1.2-6.7); Basophils % 0.6; Eosinophils % 1.6; HCT 28.5 % (40.0-50.0); HGB 8.9 g/dL (13.5-17.5); Immature Grans % 0.9; MCH 28.8 pg (27.0-33.0); MCHC 31.2 % (32.0-36.0); MCV 92 fL (80-95); Monocytes % 6.6; Neutrophils % 62.3; RBC 3.09 10^6/uL (4.36-5.78); RDW 14.1 % (11.8-14.1); RDW-SD 47.8 fL; WBC 3.18 10^3/uL (4.4-10.8)
[2022-11-21 07:31] LABS: Diff Comment Diff Reviewed; RBC Morphology Normal
[2022-11-21 07:32] LABS: Anion Gap 6.1 mmol/L (3-11); BUN 9 mg/dL (7-18); CO2 25.9 mmol/L (21.0-32.0); CREATININE 0.7 mg/dL (0.70-1.30); Calcium 8.6 mg/dL (8.5-10.1); Chloride 107 mmol/L (98-107); Estimated GFR 120.95 (mL/min/1.73m2); Glucose 91 mg/dL (74-106); Potassium 4.8 mmol/L (3.5-5.1); Sodium 139 mmol/L (136-145)
[2022-11-21 07:34] VITALS: BP 120/66; PULSE 61; RESP 16; TEMP 36.1; O2SAT 97
[2022-11-21 07:38] LABS: C-Reactive Protein 5.86 mg/dL (0.0-0.3); Magnesium 1.8 mg/dL (1.8-2.4)
[2022-11-21] MEDS: Buprenorphine 2 MG SUBLINGUAL TABLET 4 MG SL (07:38)
[2022-11-21] MEDS: VANCOMYCIN/WATER (PEG) 1.5 GM/300 ML BAG IVPB ×3 (07:38→23:16)
[2022-11-21] MEDS: MELOXICAM 7.5 MG TAB PO (07:38)
[2022-11-21 08:28] LABS: Ferritin 225 ng/mL (26-388); Folate 14.6 ng/mL (8.6-20.0); Vitamin B12 1403 pg/mL (193-986)
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
[2022-11-21 10:18] LABS: ESR 72 mm/hr (0-15)
--- NOTE | 2022-11-21 10:54 | W.NUTCONSULT ---
Date of service: 11/21/22 Time of Service: 10:54 Nutritional Consult ASSESSMENT: 37 year old male with hx of opioid dependece witih theron stasis ulcer, left leg cellulitis and lymphadema with 2 wounds on LE. Following regular meal plan with excellent intake. BMI indicates class 2 obesity- with increased protein needs in view of high BMI and wounds. Estimated Needs( adjusted body weight: 222lbs): 2522 kcal, 140 g protein, 3000 ml fluid NUTRITIONAL DIAGNOSIS: Inadequate protein intake as with increased protein needs for healing. INTERVENTION: Continue regular diet with double portions of protein supplement with liquid protein: 1 oz BID MVI, VIt C 500 mg BID, 220 mg zinc sulfate x 14 days MONITORING AND EVALUATION: labs, weight, po intake Time Spent in Nutritional Counseling and Treatment: 0
--- NOTE | 2022-11-21 11:00 | PGE_ITS ---
Date of Service Date of service: 11/21/22 Time of Service: 11:00 Assessment and Plan Assessment and plan (1) Left leg cellulitis: Status: Acute Assessment and plan: Conitnue vancomycin. Has a midline. MRSA screen negative. Discussed wound care with general surgery - posterior wound is getting packed. Anterior wound: awaiting wound care follow up for clarification of recomme ndations. After this, the patient could be discharged. (2) Lymphedema: Status: Chronic Assessment and plan: Will need follow up with a lymphedema therapist. PT has been consulted - the only lymphedema therapist is on vacation and will not be here; care managers will contact the [place] [facility] and let them know he should have that out patient. (3) Venous stasis ulcer: Status: Acute Assessment and plan: Continue compression/wound care per general surgery. (4) Opioid dependence: Status: Chronic Assessment and plan: Continue suboxone (5) DVT prophylaxis: Status: Acute Assessment and plan: SC enoxaparin (6) Discharge planning issues: Status: Acute Assessment and plan: Anticipate discharge tomorrow w/ IV vancomycin back to [place] [facility] discussed with Dr Chaidez Subjective Subjective Patient reports: no new complaints, pain is less, voiding w/o difficulty and bowel movement; denies diarrhea, blood in stool, nausea, vomiting or shortness of breath Interval history since last seen: No complaints - in bed sitting 45 degrees watching TV, had a good breakfast - wound consult done by wound nurse; recommendations pending Exam Narrative Exam Narrative: General: Pleasant obese male who is A&Ox3, laying in bed@ 45 degress HEENT: EOMI, MMM Heart: RRR, no m/r/g Lungs: CTAB Abdomen: soft, nontender, nondistended Extremities: BLE lymphedema, BLEs are wrapped; on undoing the dressing LLE, erythema is mild on top of the hyperpigmentation of chronic venous stasis change. Anterior tibial wound with sloughing secretions; posterior tibial wound draining serosanguenous discharge as well as blood. Objective Last Vital Signs Temp 36.1 C L 11/21/22 07:34 Pulse 61 11/21/22 07:34 Resp 16 11/21/22 07:34 BP 120/66 11/21/22 07:34 Pulse Ox 97 11/21/22 07:34 Laboratory Results - last 24 hr 0211/21/22 11/21/22 06:55 06:55 06:55 WBC 3.18 L RBC 3.09 L Hgb 8.9 L Hct 28.5 L MCV 92 MCH 28.8 MCHC 31.2 L RDW 14.1 Plt Count MPV Immature Gran % 0.9 Neutrophils % 62.3 Lymphocytes % 28.0 Monocytes % 6.6 Eosinophils % 1.6 Basophils % 0.6 Nucleated RBC % 0.0 Absolute Neutrophils 1.98 Absolute Lymphocytes 0.89 L Absolute Monocytes 0.21 Absolute Eosinophils 0.05 Absolute Basophils 0.02 RBC Morphology Normal ESR Sodium 139 Potassium 4.8 Chloride 107 Carbon Dioxide 25.9 Anion Gap 6.1 BUN 9 Creatinine 0.7 Est GFR (CKD-EPI 2020) 120.95 Glucose 91 Calcium 8.6 Magnesium 1.8 Ferritin C-Reactive Protein 5.86 H Vitamin B12 Folate Add-On Test Request 11/21/22 11/21/22 11/21/22 06:55 06:55 10:08 WBC RBC Hgb Hct MCV MCH MCHC RDW Plt Count MPV Immature Gran % Neutrophils % Lymphocytes % Monocytes % Eosinophils % Basophils % Nucleated RBC % Absolute Neutrophils Absolute Lymphocytes Absolute Monocytes Absolute Eosinophils Absolute Basophils RBC Morphology ESR 72 H Sodium Potassium Chloride Carbon Dioxide Anion Gap BUN Creatinine Est GFR (CKD-EPI 2020) Glucose Calcium Magnesium Ferritin 225 C-Reactive Protein Vitamin B12 1403 H Folate 14.6 Add-On Test Request Time Spent with Patient Time Spent with Patient: 25-34 minutes Time was spent: preparing to see the patient(eg.review tests), obtaining and/or reviewing separately otained hiistory, ordering medications,tests, procedures, referring, communicating with other health behavioral health care manager, indepentently interpreting results, counseling the patient and care coordination
--- NOTE | 2022-11-21 13:39 | PDOC.CMPRO ---
- If Service Date Differs Date of service: 11/21/22 Time of Service: 13:39 Care Management Progress Note S/O: Chadd was sitting up in his bed when CM met with him. He reported that he is feeling good today, and is very happy with the care he is receiving at [facility]. CM reviewed his plan, as per report, he will have six weeks of IV antibiotics, which he can complete at the correctional facility. He has been working with PT during this inpatient stay, who recommends that he use a FWW, and that he have lymphedema therapy outpatient as well. [facility]UC communicated these needs to Nina at [facility], who is coordinating his discharge needs at their facility. Nina stated that the antibiotic (Vanco) will need to be ordered, and requested that he have his morning dose prior to discharge, once he is medically cleared, likely tomorrow. PHUC verified the antibiotic course with the Pharmacy, who reported that he is receiving 1.5gm vanco, every 8 hours, with his dosing times scheduled at 8am, 4pm, & 12am. Nina stated that she will order the medication, as requested, and he would be able to return as early as tomorrow mid morning. She stated that their facility will support him with their own FWW, and will reach out to PT regarding the lymphedema therapy. PHUC will continue to follow. A: Chadd is a 37 year old male admitted to [facility] on 11/17/22 for cellulitis. P: Chadd will require intermodal customer service IV abx, which will be accommodated at [facility], coordinated by [facility] and Nina San ([phone]). He will return to [facility] once he is medically cleared, and his IV abx plan of care is coordinated. He will follow up with facility providers, and will transport via secure transport, coordinated by HIL[facility]. [facility] will continue to follow.
[2022-11-21 14:43] VITALS: BP 99/56; PULSE 63; RESP 17; TEMP 36.6; O2SAT 94
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
[2022-11-21 16:05] LABS: Vancomycin, Trough 19.6 ug/mL (10.0-20.0)
--- NOTE | 2022-11-21 18:50 | WOUNDCONS ---
- If Service Date Differs Date of service: 11/21/22 Time of Service: 17:00 Wound Initial Evaluation Narrative: is a 37 year old obese male admitted for cellulitis. is an incarcerated patient with bilateral lymphedema and chronic venous stasis leg ulcerations. was seen for evaluation of bilateral lower extremity wounds and consent for photography was signed and witnessed. Chart was reviewed including H&P, recent labs, vital signs and other providers' reports. reports that he has had the wounds ...for about a year and a half. The lower extremities are hyper-pigmented and have some thickened skin with slight cobblestone appearance. MRSA culture is negative - Wound Left Posterior Distal Calf Wound Type: Statis Ulcer Wound General Appearance: Reddened, Draining, Tunneling Wound Surrounding Tissue Appearance: Undermined Wound Length: 0.7 cm Wound Width: 0.9 cm Wound Depth: 3.1 cm Wound Drainage Amount: Moderate Wound Drainage Description: Bloody, Sero Sanguineous Left Posterior Proximal Calf Wound Type: Statis Ulcer, Radiation Burn Wound General Appearance: Reddened, Tunneling Wound Surrounding Tissue Appearance: Undermined Wound Length: 0.7 cm Wound Width: 0.9 cm Wound Depth: 2.6 m Wound Drainage Amount: Moderate Wound Drainage Description: Bloody, Sero Sanguineous Left Anterior [place] Wound Type: Statis Ulcer Wound General Appearance: Reddened Wound Bed Greatest Portion: Red (Granulation) Wound Bed Lesser Portion: Yellow (Slough) Wound Surrounding Tissue Appearance: [place], Bright Red Wound Length: 6.7 cm Wound Width: 6.3 cm Wound Depth: 0.5 cm Wound Drainage Amount: Moderate Wound Drainage Description: Purulent, Brown, Green, Sero Sanguineous Wound Topical Solution/Irrigant: Saline Irrigant Right Anterior [place] Wound Type: Statis Ulcer Wound General Appearance: Well Approximated Wound Bed Greatest Portion: Red (Granulation) Wound Bed Lesser Portion: Yellow (Slough) Wound Surrounding Tissue Appearance: [place], Bright Red Wound Length: 4.8 cm Wound Width: 3.5 cm Wound Depth: 0.2 cm Wound Drainage Amount: Minimal Wound Drainage Odor: None/Absent Wound Drainage Description: Purulent, Brown, Green, Sero Sanguineous - Circulation, Sensation, Motion Peripheral Pulse Strength: Normal Capillary Refill: Less than 3 seconds Sensation Description: Within Normal Limits Skin Temperature: Warm Skin Color: Hyperpigmentation - Pain Pain Level: 3 Pain Description: Burning, Throbbing Additional Other Comments: patient reports pain only with dressing changes - Treatment/Dressing Change Topicals/Ointments: Medihoney Cleanse With: Anasept Dressing Types: Adaptic (Contact Layer), Mepilex (contact layer), Telfa - Nutrition Education Reviewed Nutrition Education: Yes Note: For optimal healing discussed increased protein intake with patient, which patient agreed to. - Recomendation Recomendation:: Remove Dressings Daily For Anterior Wounds: 1. [place] with Anasept and allow 2 minutes dwell time. 2. Cut Adaptic to wound bed size 3. Apply Medi-Honey to wound bed 4. Cover with non-adherent pad 5. Cover with Mepilex For Posterior wounds: 1. Remove iodoform packing string 2. Repack with Iodoform packing using aseptic technique 3. Cover with Mepilex Physcian/Nurse Practioner Notified: Yes Treatment Time - Time Total Time Spent with Patient: 60 minutes - Patient Will be Seen Weekly Treatment: daily - For: For:: 1 week
[2022-11-21 23:34] VITALS: BP 116/65; PULSE 60; RESP 16; TEMP 36.5; O2SAT 95
[2022-11-22] MEDS: Heparin 5,000 UNITS/ML VIAL 5000 UNITS SC (05:34)
[2022-11-22 06:28] LABS: Abs Immature Grans 0.02 10^3/uL (0.0-0.06); Absolute Basophil Count 0.02 10^3/uL (0.0-0.2); Absolute Eosinophil Count 0.04 10^3/uL (0.0-0.7); Absolute Lymphocyte Count 1.18 10^3/uL (1.2-3.4); Absolute Monocyte Count 0.26 10^3/uL (0.1-0.8); Absolute Neutrophil Count 1.89 10^3/uL (1.2-6.7); Basophils % 0.6; Eosinophils % 1.2; HCT 29.3 % (40.0-50.0); HGB 9.1 g/dL (13.5-17.5); Immature Grans % 0.6; Lymphocytes % 34.6; MCH 28.6 pg (27.0-33.0); MCHC 31.1 % (32.0-36.0); MCV 92 fL (80-95); MPV 10.7 fL (8.0-11.0); Monocytes % 7.6; Neutrophils % 55.4; Platelet Count 206 10^3/uL (130-400); RBC 3.18 10^6/uL (4.36-5.78); RDW 13.9 % (11.8-14.1); RDW-SD 47.3 fL; WBC 3.41 10^3/uL (4.4-10.8)
[2022-11-22 06:42] LABS: Anion Gap 4.8 mmol/L (3-11); BUN 11 mg/dL (7-18); C-Reactive Protein 4.61 mg/dL (0.0-0.3); CO2 28.2 mmol/L (21.0-32.0); CREATININE 0.7 mg/dL (0.70-1.30); Calcium 8.6 mg/dL (8.5-10.1); Chloride 107 mmol/L (98-107); Estimated GFR 120.95 (mL/min/1.73m2); Glucose 91 mg/dL (74-106); Magnesium 1.8 mg/dL (1.8-2.4); Potassium 4.2 mmol/L (3.5-5.1); Sodium 140 mmol/L (136-145)
[2022-11-22 07:20] LABS: Procalcitonin < 0.1 ng/mL
[2022-11-22 07:30] VITALS: BP 95/49; PULSE 86; RESP 16; TEMP 36.5; O2SAT 100
[2022-11-22] MEDS: VANCOMYCIN/WATER (PEG) 1.5 GM/300 ML BAG IVPB (07:39)
[2022-11-22] MEDS: MELOXICAM 7.5 MG TAB PO (07:39)
[2022-11-22] MEDS: Buprenorphine 2 MG SUBLINGUAL TABLET 4 MG SL (07:39)
--- NOTE | 2022-11-22 10:39 | PT.INNT ---
PT Notes Visit Reasons: Cellulitis Patient indicates has been having some drainage out of his wound that was dressed on the inner aspect of left lower extremity above the medial malleolus. He is afraid that if he does do any ambulatory activities this will create a mass and drain all over the floor. He would like to wait on ambulation until wound is redressed later this morning. Uncertain as to whether or not he is being discharged from the facility today. Reports independence with all functional mobility despite ongoing right hip and knee pain stemming from hip fracture 14+ months ago prior to his incarceration. Conversation with nursing indicates that he is likely being discharged to a facility who can carry out his wound care as he is requiring antibiotic IV 3 times a day and his current location is unable to provide care for him at this level. We will look to revisit patient afternoon time when his wound is redressed.
--- NOTE | 2022-11-22 11:00 | DI.RAD_ITS ---
Exam(s) XR HIP RT COMPLETE AP PELVIS EXAM: XR HIP RT COMPLETE AP PELVIS CLINICAL HISTORY: Pain. TECHNIQUE: 2D digital imaging was performed. COMPARISON: CT CT LOWER EXTREMITY RT W from 11/17/2022 FINDINGS: No evidence of acute fracture of the pelvis. There is severe advanced degenerative change in the right hip. There is also flattening of the right femoral head. Also dystrophic calcifications seen around the right femoral head and neck. IMPRESSION: Severe advanced degenerative changes in the right hip. Flattening of the right femoral head. Possib ly sequela of avascular necrosis. Similar findings are not seen in the opposite-left hip DATA REPOSITORY: RADIATION DOSE DELIVERED:
--- NOTE | 2022-11-22 11:03 | DSE_ITS ---
Date of service: 11/22/22 Time of Service: 11:03 DS: Diagnosis Discharge Diagnosis (1) Left leg cellulitis: Status: Acute (2) Lymphedema: Status: Chronic (3) Venous stasis ulcer: Status: Acute (4) Opioid dependence: Status: Chronic (5) DVT prophylaxis: Status: Acute (6) Discharge planning issues: Status: Acute Discharge Plan Disposition Patient Disposition: [facility] Condition: Improving Discharge Details Reason For Visit: Cellulitis Admit Date/Time: 11/17/22 14:58 Admit Provider: Josep Mc Attending Provider: Josep Mc Primary [facility] Hospital Course: This is a 37 yo male patient with a past medical history of lymp hedema, substance abuse, and venous stasis leg ulcerations currently residing in a correctional facility.? He presented to the [facility] ED on 11/17/2022 for ongoing increased redness, swelling and drainage from the posterior left.? He had completed five days of Clindamycin without improvement. He did not have a fever but stated that 2-3 days ago he did have a temperature of 40c.? No N/V/diarrhea.?Presenting WBC count normal.? CRP elevated at 18.16.? ESR elevated at 53. CT of the LLE showed no abscess or osteomyelitis. Gen Surg, Dr Maldonado evaluated the patient while he was in the ED and gave wound care recommendations. Vancomycin IV was started.?He was admitted to the medical floor for further IV antibiotic administration, wound care, further evaluation and diagnostics. A midline was placed in anticipation of continued antibiotic administration after discharge. ?He had a wound consult by a certified wound nurse, with those recommendations noted on discharge.? Lymph edema therapy is recommended by physical therapy. He has improved and discussion with the medical provider at the correctional institute confirmed they have the ability and means to provide further antibiotics, lab studies and wound care in the [facility] there. A hand off phone call was completed with Dr. Klarissa Carranza.? He is discharged with personnel from the [facility] of corrections, stable; vital signs heart rate 60, blood pressure 116/65, temp 36.5c. SPO2 95% on room air. ?Today?s labs WBC 3.4, Hgb 9.1, Hct 29.3 ? his baseline ? and normal chemistries. Chadd complained to physical therapy about his right hip hurting and that he could not walk correctly. We did do a plain film and will refer him to orthopedics in [place]. Discussed with Dr. Chaidez ? Home Meds and New Rx's Prescriptions: New vancomycin 1.5 gram recon soln 1.5 g IV Q8H Qty: 42 0RF meloxicam 15 mg tablet 15 mg PO DAILY Qty: 30 0RF Continued acetaminophen 325 mg Tablet 650 mg PO TID buprenorphine HCl 2 mg Tablet, Sublingual 4 mg SUBLINGUAL DAILY buprenorphine HCl 8 mg Tablet, Sublingual 8 mg SUBLINGUAL DAILY Discontinued clindamycin HCl 300 mg Capsule 300 mg PO TID meloxicam 7.5 mg tablet 7.5 mg PO DAILY Discharge Instructions Instructions: Vancomycin (By injection), Cellulitis (DC), Lymphedema (DC) Additional Instructions: Continue Vancomycin 1.5 gm three times a day for 14 more days and then have provider reassess to determine course at that point. CBC BMP CRP Vancomycin Trough 11/28/2022 and 12/19/2022 Recommend lymph edema therapy per physical therapy Wound Care: Change anterior dressings daily and PRN For anterior left and right lower leg wounds: 1. [place] with Anasept or equivalent and allow 2 minutes dwell time. 2. Apply Medi-Honey to wound bed 3. Apply adaptic to wound bed 4. Cover with non-adherent pad 5. Cover with foam island dressing Change posterior dressings twice a day and PRN For Posterior wounds: 1. [place] with Anasept or equivalent and allow 2 minutes dwell time. 2. Irrigate gently with normal saline 2. Pack with plain iodoform packing 3. Cover with foam island dressing Apply compression dressing from the toes to knee Stand Alone Forms: Nursing Discharge Form Referrals: Gaudencio Copeland [ NON-[facility] STAFF PHYSICIAN] - (Edward was here being treated for cellulitis. He complained of pain to his right hip. We did plain films: IMPRESSION: Severe advanced degenerative changes in the right hip. Flattening of the right femoral head. Possibly sequela of avascular necrosis. Similar findings are not seen in the opposite-left hip He requires follow up ) Activity:: Activity as Tolerated Equipment/Supplies:: No Equipment Needed Diet:: As Tolerated Discharge Orders Discharge Orders: Discharge Order (Routine); Ordered 11/22/22 Ordered By: Julieta Barajas DS: Summary Time Spent with Patient providing and/or coordinating discharge services: Greater than 30 minutes Status at Discharge Functional status at discharge: uses cane/walker Overall status at discharge: patient is not back to baseline Mental Status: mental status grossly normal Speech and Movement: speech and movement normal Mood: congruent mood Affect: normal affect Exam Narrative Exam Narrative: General: Pleasant obese male who is A&Ox3, laying in bed@ 45 degress HEENT: EOMI, MMM Heart: RRR, no m/r/g Lungs: CTAB Abdomen: soft, nontender, nondistended Extremities: BLE lymphedema, BLEs are wrapped; on undoing the dressing LLE, erythema is mild on top of the hyperpigmentation of chronic venous stasis change. Anterior tibial wound with sloughing secretions; posterior tibial wound draining serosanguenous discharge as well as blood. Psych Mental Status: mental status grossly normal Speech and Movement: speech and movement normal Mood: congruent mood Affect: normal affect DS: Data Vitals/I&O Vitals and I&O: Vital Signs Temperature 36.5 C 11/21/22 23:34 Temperature Source Tympanic 11/21/22 23:34 Pulse 60 11/21/22 23:34 Pulse Rhythm Regular 11/22/22 08:00 Respiratory Rate 16 11/21/22 23:34 Respiratory Effort Normal, Non-Labored 11/22/22 08:00 Respiratory Depth Normal 11/22/22 08:00 Respiratory Pattern Normal 11/22/22 08:00 Blood Pressure 116/65 11/21/22 23:34 Blood Pressure Mean 87 11/17/22 14:16 Blood Pressure Position Sitting 11/17/22 12:25 Pulse Oximetry 95 11/21/22 23:34 Oxygen Delivery Method Room Air 11/21/22 23:34 Oxygen Flow Rate 0 11/21/22 23:34 Pain Level 0 11/22/22 08:00 Comment BP called over radio 11/21/22 14:43 Intake & Output 11/21/22 11/21/22 11/22/22 11:59 23:59 11:59 Intake Total 300 / 1380 1080 / 1380 600 / 600 Output Total 1050 / 2150 1100 / 2150 1500 / 1500 Balance -750 / -770 -20 / -770 -900 / -900 Intake: IV 300 / 900 600 / 900 600 / 600 Oral 480 / 480 Output: Urine 1050 / 2150 1100 / 2150 1500 / 1500 Other: Urine Color Yellow Yellow Yellow Urine Appearance Clear Clear Clear Urine Odor Normal None Voiding Methods Urinal Urinal Urinal Data Completed and Pending Labs on day of discharge: Labs from last 24 hours 11/22/22 11/22/22 11/22/22 06:20 06:20 06:20 WBC 3.41 L RBC 3.18 L Hgb 9.1 L Hct 29.3 L MCV 92 MCH 28.6 MCHC 31.1 L RDW 13.9 Plt Count 206 MPV 10.7 Immature Gran % 0.6 Neutrophils % 55.4 Lymphocytes % 34.6 Monocytes % 7.6 Eosinophils % 1.2 Basophils % 0.6 Nucleated RBC % 0.0 Absolute Neutrophils 1.89 Absolute Lymphocytes 1.18 L Absolute Monocytes 0.26 Absolute Eosinophils 0.04 Absolute Basophils 0.02 Sodium 140 Potassium 4.2 Chloride 107 Carbon Dioxide 28.2 Anion Gap 4.8 BUN 11 Creatinine 0.7 Est GFR (CKD-EPI 2020) 120.95 Glucose 91 Calcium 8.6 Magnesium 1.8 C-Reactive Protein 4.61 H Procalcitonin < 0.1 Vancomycin Trough 11/21/22 15:35 WBC RBC Hgb Hct MCV MCH MCHC RDW Plt Count MPV Immature Gran % Neutrophils % Lymphocytes % Monocytes % Eosinophils % Basophils % Nucleated RBC % Absolute Neutrophils Absolute Lymphocytes Absolute Monocytes Absolute Eosinophils Absolute Basophils Sodium Potassium Chloride Carbon Dioxide Anion Gap BUN Creatinine Est GFR (CKD-EPI 2020) Glucose Calcium Magnesium C-Reactive Protein Procalcitonin Vancomycin Trough 19.6 Additional Comments Additional comments: Xray of Right hip IMPRESSION: Severe advanced degenerative changes in the right hip.? Flattening of the right femoral head.? Possibly sequela of avascular necrosis. Similar findings are not seen in the opposite-left hip PFSH All Active Problems (Updated 11/19/22 @ 19:04 by Meghan Chaidez MD) Discharge planning issues (Acute) DVT prophylaxis (Acute) Opioid dependence (Chronic) Venous stasis ulcer (Acute) Lymphedema (Chronic) Left leg cellulitis (Acute) Social History Smoking/Tobacco Use Status: Former Tobacco Use Smoking risk assessment performed?: Yes Time Spent with Patient Time Spent with Patient: 45-69 minutes Time was spent: preparing to see the patient(eg.review tests), obtaining and/or reviewing separately otained hiistory, ordering medications,tests, procedures, referring, communicating with other health home health care respiratory therapist, indepentently interpreting results, counseling the patient and care coordination
--- NOTE | 2022-11-22 12:17 | PDOC.CMDIS ---
- If Service Date Differs Date of service: 11/22/22 Time of Service: 12:17 LACE Index Scoring Tool - Questions: Length of Stay (in days): 4 - 6 Acuity (Admit via E.D.?): Yes E.D. Visits: 1 - Answers: Total Score: 8 Risk of Readmission: Low Risk Care Management Discharge Reason for Hospitalization: Cellulitis Discharge Plan: Chadd returned to the custody of the [facility] corrections today. He will be transported to [facility] in [place], by DOC, secure transport. He will complete his IV antibiotic course at this facility, and will have wound care, as prescribed. CM requested lymphedema therapy, and follow up for findings on a hip xray, as requested by provider. CM coordinated discharge with Nina San, community case manager for [facility]. He will follow up with facility providers and his discharge plan of care. He was pleasant and agreeable to the discharge plan. Patient/Family Education Needs: Review discharge instructions and limitations, discussion of self care needs including ask me three. Services Needed at Discharge: Transportation (DOC transport)
--- NOTE | 2022-11-22 14:41 | INDS_ITS ---
PT Notes Visit Reasons: Cellulitis Inpatient Physical Therapy Discharge Summary Date: 11/22/22 Dates of Service: 11/21/22 through 11/22/22 This is a clinical summary of care provided for the duration of dates listed above. No charge was made in the completion of this documentation. Referring Doctor: Meghan Chaidez MD PT Orders: PT CONSULT: Eval & Treat, lymphedema B LEs Precautions: Fall. Standard. Lymphedema. Incarcerated. Patient Profile/Admitting Diagnosis:Lurdes is 37 yo male that presented to the ER on 11/17/22 for increased swelling, redness, and drainage from posterior left lower leg. He was admitted for treatment. Assessment: Patient discharged by attending physician and [facility]. Independent with mobility, but limitations with right hip. Imaging shows severe degenerative changes. Goals: Goals x1 week 1. Independent gait on level surface with use of least restrictive device for at least 300 feet without report of pain nor dyspnea - Goal met 2. Good static and dynamic standing balance/tolerance - Not met 3. Independent with home exercise program - Not assigned 4. Independent stair negotiation while holding onto bilateral rails for at least 5 steps without report of pain nor dyspnea - Not tested TREATMENT CODE/TIME: No charge Thank you for the opportunity to participate in the care of this patient.
== END 2022-11-22 11:51 | DRG 603 ==
LOC: ER 15:40 → MS 16:05
PROVIDERS: Internal Medicine; Admitting Provider Family Medicine; Emergency Provider Student in an Organized Health Care Education/Training Program; PCP Family Medicine; Visit Provider Family Medicine
DX: L03.116 Cellulitis of left lower limb (principal); L97.821 Non-pressure chronic ulcer of other part of left lower leg limited to breakdown of skin; L97.811 Non-pressure chronic ulcer of other part of right lower leg limited to breakdown of skin; F11.20 Opioid dependence, uncomplicated; I89.0 Lymphedema, not elsewhere classified; E66.9 Obesity, unspecified; I87.2 Venous insufficiency (chronic) (peripheral); Z87.891 Personal history of nicotine dependence; Z68.39 Body mass index [BMI] 39.0-39.9, adult
CPT/HCPCS: 36410; 36415; 80048; 80053; 84145; 85027; 85652; 87081; 87635; 96365; 96366; 97162; 97530; 99221; 99285; 73502; 73701; 80202; 82607; 82728; 82746; 83540; 83550; 83735; 85025; 86140; 99222; 99232; 99233; 99239; J1644; J2543; J3490